=== PATIENT | male | born 1950 ===

== ENCOUNTER 2020-05-26 13:56 | Emergency (ER) | payer MEDICARE ==
[2020-05-26 15:08] LABS: HEMOGLOBIN 11.4 gm/dl (14.0-17.5); RED BLOOD COUNT 3.78 M/UL (4.20-5.50); WHITE BLOOD COUNT 8.9 K/UL (4.5-11.0)
[2020-05-26] MEDS ORDERED: VENTOLIN HFA 66.7 GM INH (17:02)
[2020-05-26] MEDS ORDERED: ZITHROMAX250 MG PO (17:02)
[2020-05-26] MEDS ORDERED: OMNICEF 300 MG300 MG PO (17:02)
== END 2020-05-26 17:48 | disposition left against medical advice (07) ==
LOC: ER1 13:56
PROVIDERS: Internal Medicine
DX: J18.9 Pneumonia, unspecified organism (principal); I12.9 Hypertensive chronic kidney disease with stage 1 through stage 4 chronic kidney disease, or unspecified chronic kidney disease; N18.9 Chronic kidney disease, unspecified; R79.89 Other specified abnormal findings of blood chemistry
CPT/HCPCS: 36415; 71045; 80053; 82550; 82553; 84484; 85025; 93005; 96365; 99285; J0696